=== PATIENT | male | born 1970 | race Caucasian/White ===

== ENCOUNTER 2021-04-01 12:41 | Emergency (ER) | payer OTHER ==
[~2021-04-01] VITALS: Ht 177.8 cm; Wt 90.8 kg
[2021-04-01 12:52] VITALS: BP 143/92
--- NOTE | 2021-04-01 12:53 | PHYS DOC ---
Adult General HPI HPI Patient is a 50-year-old male presents emergency department reporting right medial elbow pain after attempting to untwist a fire hose nozzle while at work at approximately 1030 this morning. Patient states well untwisting the nozzle he felt a sudden pain that he describes as a muscle strain to the inner part of his right elbow, also states he felt some numbness and tingling down his medial forearm to his ring and pinky finger. Patient denies any loss of movement, denies any loss of strength. Patient denies any other physical complaints or physical injuries. Patient reports a COVID-19 vaccine completed 2 months ago, Moderna type. Patient denies allergies to medications, denies surgical history, states he takes no medications and has no past medical history. Patient denies smoking cigarettes, drinking alcohol, illicit drug use. Patient rates his pain a 4 out of 10. (BECCA COTTO APRN) Review of Systems Review of Systems 14 body systems of review of systems have been reviewed. See HPI for pertinent positives and negative responses, otherwise all other systems are negative, nonpertinent or noncontributory. Constitutional: Negative except as outlined in HPI above. Skin: Negative except as outlined in HPI above. Eyes: Negative except as outlined in HPI above. HENT: Negative except as outlined in HPI above. Respiratory: Negative except as outlined in HPI above. Cardiovascular: Negative except as outlined in HPI above. GI: Negative except as outlined in HPI above. : Negative except as outlined in HPI above. Musculoskeletal: Negative except as outlined in HPI above. Integument: Negative except as outlined in HPI above. Neurologic: Negative except as outlined in HPI above. Endocrine: Negative except as outlined in HPI above. Lymphatic: Negative except as outlined in HPI above. Psychiatric: Negative except as outlined in HPI above. (BECCA COTTO APRN) Physical Exam Physical Exam Constitutional: Well developed, well nourished, no acute distress, non-toxic appearance. 50-year-old male in no apparent distress. HENT: Normocephalic, atraumatic. Eyes: Conjunctiva normal, no discharge. Neck: Normal range of motion, no stridor. Cardiovascular: No cyanosis appreciated, distal cap refill less than 2 seconds. Lungs & Thorax: Patient is in no respiratory distress, no audible adventitious lung sounds appreciated. Abdomen: Nontender, no abnormalities noted. Skin: Warm, dry, no erythema, no rash. Back: No tenderness, no deformities. Extremities: No tenderness, no cyanosis, no clubbing, ROM intact, no edema. Except for right posterior medial elbow and musculoskeletal structures within a 3 cm radius pain to palpation, no crepitus appreciated, no deformities appreciated, distal cap refill less than 2 seconds, 2+ radial pulse, 2+ brachial pulse, full AROM/PROM of right elbow wrist and finger joints. No loss of strength appreciated, patient does complain of paresthesia to pinky and ring finger, no change with Tinel's test. No skin discoloration appreciated. No swelling or skin discoloration of the medial right elbow or surrounding structures appreciated. Neurologic: Alert and oriented X 3, normal motor function, normal sensory function, no focal deficits noted. Psychologic: Affect normal, judgement normal, mood normal. (BECCA COTTO APRN) EKG EKG [] (BECCA COTTO APRN) Radiology/Procedures Radiology/Procedures PATIENT: JULIENNE WALKER ACCOUNT: [id number] : 1970 LOCATION: ER AGE: 50 SEX: M EXAM STATUS: REG ER ORD. PHYSICIAN: BECCA COTTO APRN REASON: right elbow pain with distal numbness PROCEDURE: ELBOW RIGHT 3V XR ELBOW COMPLETE_RIGHT 3+ VIEWS History: Right elbow pain with distal numbness. Comparison: None. Technique: 3 views of the right elbow Findings: Osseous mineralization is normal. No fracture or dislocaton. No joint effusion. No significant degenerative changes. Soft tissues are unremarkable. Impression: 1. No acute osseous abnormality of the right elbow. Electronically signed by: Yasir Mariano MD (04/01/2021 1:35 PM) [facility] DICTATED AND SIGNED BY: YASIR MARIANO MD DATE: 04/01/21 3925 CC: BECCA COTTO APRN; NOLVIA DIAZ FLANGING MACHINE OPERATOR ~MTH0 0 (BECCA COTTO APRN) Heart Score C/O Chest Pain: No Risk Factors: Risk Factors: DM, Current or recent (<one month) smoker, HTN, HLP, family history of CAD, obesity. Risk Scores: Risk Factors: DM, Current or recent (<one month) smoker, HTN, HLP, family history of CAD, obesity. (BECCA COTTO APRN) Course & Med Decision Making Course & Med Decision Making Pertinent Labs and Imaging studies reviewed. (See chart for details) 50-year-old male, vital signs reviewed, presents emergency department with complaints of right medial elbow pain with ring and pinky finger numbness after untwisting a fire hose nozzle at work today. Physical examination consistent with muscle strain with ulnar nerve neuropathy near the right medial elbow of the medial intermuscular septum/flexor carpi ulnaris structures without swelling appreciated. Will order x-ray to rule out bony abnormality, 80 mg Depo-Medrol IM, 60 mg IM Toradol. X-ray negative for acute process. Discussed findings with patient, diagnosis of elbow strain with ulnar neuropathy. RICE therapy, NSAID therapy, will give 2 days off of work for rest time. Strict follow-up with work comp physician this coming Sunday for reevaluation, if ongoing neuropathy symptoms strict follow-up with orthopedic surgeon. Patient gave verbal understanding of discharge home instructions, follow-up with work comp this Sunday, return to ER precautions and concerns, patient had no further questions or concerns and was discharged home without incident. (BECCA COTTO APRN) Dragon Disclaimer Dragon Disclaimer This electronic medical record was generated, in whole or in part, using a voice recognition dictation system. (BECCA COTTO APRN) Attending Co-Sign The patient was seen and interviewed as well as examined at the bedside. The chart was reviewed. The case was discussed. Agree with the plan of care. (GAVIN WELLER DO) Departure Departure: Impression: Primary Impression: Strain of elbow, right Additional Impression: Ulnar neuropathy Disposition: HOME / SELF CARE / HOMELESS Condition: GOOD Referrals: NOLVIA DIAZ (PCP) Patient Instructions: Muscle Strain Additional Instructions: You were seen today in the emergency department for a muscle strain of your right inner elbow area, an x-ray was performed and did not show any bony abnormality or fracture, we discussed your strain type injury and the numbness and tingling you feel down your arm to your ring and pinky fingers, this is called a ulnar neuropathy, this may resolve on its own with rest and NSAID the rapy. As we discussed please follow-up with your work comp physician this Sunday for ongoing evaluation and management of this injury. I am providing you a work excuse for the next 2 days, please take this time to rest, use ice applications 30 minutes on and 30 minutes off while awake, do not use right upper extremity extensively, these injuries respond well to rest. If you are having ongoing numbness and tingling of this area, please consider following up with an orthopedic surgeon for evaluation. Please return to the emergency department for worsening symptoms or other concerns. It was a pleasure taking care of you in the emergency department today and I thank you for allowing me to participate in your emergency healthcare needs. EMERGENCY DEPARTMENT GENERAL DISCHARGE INSTRUCTIONS Thank you for coming to [facility] (ED) today and trusting us with you care. We trust that you had a positivie experience in our Emergency Department. If you wish to speak to the department management, you may call the director at [phone]. YOUR FOLLOW UP INSTRUCTIONS ARE FOLLOWS: 1. Do you have a private Doctor? If you do not have a private doctor, please ask for a resource list of physicians or clinics that may be able to assist you with follow up care. 2. The Emergency Physician has interpreted your x-rays. The X-Ray specialist will also review them. If there is a change in the findings, you will be notified in 48 hours when at all possible. 3. A lab test or culture has been done, your results will be reviewed and you will be notified if you need a change in treatment. ADDITIONAL INSTRUCTIONS AND INFORMATION: 1. Your care today has been supervised by a physician who is specially trained in emergency care. Many problems require more than one evaluation for a complete diagnosis and treatment. We recommend that you schedule your follow up appointment as recommended to ensure complete treatment of you illness or injury. If you are unable to obtain follow up care and continue to have a problem, or if your condition worsens, we recommend that you return to the ED. 2. We are not able to safely determine your condition over the phone nor are we able to give sound medical advice over the phone. For these safety reasons, if you call for medical advice we will ask you to come to the ED for further evaluation. 3. If you have any questions regarding these discharge instructions please call the ED at [phone]. SAFETY INFORMATION: In the interest of safety, wellness, and injury prevention; we encourage you to wear your sealbelt, if you smoke; quite smoking, and we encourage family to use a prot ective helmet for bicycling and other sporting events that present an increased risk for head injury. IF YOUR SYMPTOMS WORSEN OR NEW SYMPTOMS DEVELOP, OR YOU HAVE CONCERNS ABOUT YOUR CONDITION; OR IF YOUR CONDITION WORSENS WHILE YOU ARE WAITING FOR YOUR FOLLOW UP APPOINTMENT; EITHER CONTACT YOUR PRIMARY CARE DOCTOR, THE PHYSICIAN WHOSE NAME AND NUMBER YOU WERE GIVEN, OR RETURN TO THE ED IMMEDIATELY. Scripts Ibuprofen (IBUPROFEN) 600 Mg Tablet 600 MG PO Q6-8HRS PRN for PAIN, #20 TAB 0 Refills Prov: BECCA COTTO APRN 04/01/21 Problem Qualifiers Primary Impression: Strain of elbow, right Encounter type: initial encounter Qualified Codes: S46.911A - Strain of unspecified muscle, fascia and tendon at shoulder and upper arm level, right arm, initial encounter Additional Impression: Ulnar neuropathy Laterality: right Qualified Codes: G56.21 - Lesion of ulnar nerve, right upper limb BECCA COTTO APRN Apr 01, 2021 12:53 GAVIN WELLER DO Apr 02, 2021 10:33
[2021-04-01] MEDS ORDERED: KETOROLAC 60 MG/2 ML VIAL. IM ONE (13:00)
[2021-04-01] MEDS ORDERED: methylPREDNISolone ACETATE 80 MG/ML VIAL. IM ONE (13:00)
--- NOTE | 2021-04-01 13:37 | RAD ---
XR ELBOW COMPLETE_RIGHT 3+ VIEWS History: Right elbow pain with distal numbness. Comparison: None. Technique: 3 views of the right elbow Findings: Osseous mineralization is normal. No fracture or dislocaton. No joint effusion. No significant degene rative changes. Soft tissues are unremarkable. Impression: 1. No acute osseous abnormality of the right elbow. Electronically signed by: Yasir Berry MD (04/01/2021 1:35 PM) [facility]
[2021-04-01] MEDS ORDERED: IBUP600T16 PO (13:50)
== END 2021-04-01 14:05 | disposition home or self-care (01) ==
LOC: ER 12:41
DX: S46.911A Strain of unspecified muscle, fascia and tendon at shoulder and upper arm level, right arm, initial encounter (principal); G56.21 Lesion of ulnar nerve, right upper limb; X50.9XXA Other and unspecified overexertion or strenuous movements or postures, initial encounter; Y93.89 Activity, other specified; Y92.89 Other specified places as the place of occurrence of the external cause; Y99.8 Other external cause status
CPT/HCPCS: 73080; 96372; 99284; J1040; J1885